=== PATIENT | male | born 1990 | race African-American/Black ===

== ENCOUNTER 2023-09-22 02:50 | Emergency (ER) | payer MEDICAID, OTHER ==
[~2023-09-22] VITALS: Ht 172.7 cm; Wt 99.8 kg
[2023-09-22 03:31] VITALS: BP 144/84; TEMP 98.6
[2023-09-22] MEDS ORDERED: AZIT500T PO (03:38)
[2023-09-22] MEDS ORDERED: AZITHROMYCIN 250 MG TABLET ONE (03:44)
[2023-09-22] MEDS ORDERED: dexaMETHasone SOD PHOSPHATE 1 ML ONE (03:44)
[2023-09-22] MEDS: dexaMETHasone SOD PHOSPHATE 10 MG/ML VIAL MC ONE (03:49)
[2023-09-22] MEDS: AZITHROMYCIN 250 MG TABLET PO ONE (03:49)
[2023-09-22 03:53] VITALS: O2SAT 98
== END 2023-09-22 03:54 | disposition home or self-care (01) ==
LOC: ER 02:59
DX: J02.9 Acute pharyngitis, unspecified (principal); J45.909 Unspecified asthma, uncomplicated; Z79.899 Other long term (current) drug therapy; Z59.00 Homelessness unspecified; Z88.0 Allergy status to penicillin
CPT/HCPCS: 99283; J1100